=== PATIENT | female | born 1955 | race Caucasian/White ===

== ENCOUNTER → 2018-06-06 | Outpatient (CLI) | payer OTHER ==
[~2018-06-06] MED LIST: ALBU90OI61 INH; AZAT50 PO; BUPR150ER PO; CALCIUM 500 MG1 EACH PO; CIME400; CIME400 PO; CIPR500; CYAN1000I IM; DICL75ER PO; DOXE25; DOXE25 PO; DULO60; Entocort EC 3 mg3 MG PO; FAMO40 PO; FOLI1; FOLI1 PO; GABA300 PO; HYDACE5; INSULANPEN SC; INSULANPEN SL; LEVSOD100; MESA250ER PO; METR500; MOMENI; NAPR500 PO; OMEP40CA12 PO; OXYACE5T PO; PROM25 PO; ROPI1 PO; RXHYDMOR2 PO; Remicade100 MG IV; SERT100; SITA100T2 PO; TAMS.4ER PO; TOCO1000 PO; TRAZ50 PO; TRIHYD253A PO; VENL150ER PO; [UNRECOGNIZED DRUG - OTHER]
== END | disposition home or self-care (01) ==
LOC: LAB SHORT 15:43 → LAB 15:43
DX: B35.1 Tinea unguium (principal)
CPT/HCPCS: 87220

== ENCOUNTER → 2018-07-05 | Outpatient (CLI) | payer OTHER | END | disposition home or self-care (01) | LOC: LAB SHORT 11:57 → PLD 11:57 | DX: D48.5 Neoplasm of uncertain behavior of skin (principal) | CPT/HCPCS: 88305 ==

== ENCOUNTER → 2018-08-28 | Outpatient (CLI) | payer OTHER | END | disposition home or self-care (01) | LOC: LAB SHORT 14:19 → PLD 14:19 | DX: D22.4 Melanocytic nevi of scalp and neck (principal); L82.1 Other seborrheic keratosis | CPT/HCPCS: 88305 ==

== ENCOUNTER → 2019-10-19 | Outpatient (CLI) | payer OTHER | LOC: LAB SHORT 18:33 → LAB EV 18:33 | DX: M54.5 Low back pain (principal); R10.9 Unspecified abdominal pain | CPT/HCPCS: 87086 ==

== ENCOUNTER → 2020-04-09 | Outpatient (CLI) | payer OTHER | END | disposition home or self-care (01) | LOC: PLD 11:45 → LAB SHORT 11:45 | DX: D48.5 Neoplasm of uncertain behavior of skin (principal) | CPT/HCPCS: 88305 ==

== ENCOUNTER → 2020-11-02 | Outpatient (CLI) | payer OTHER, MEDICARE | LOC: LAB SHORT 09:30 → LAB EV 09:30 | DX: E03.9 Hypothyroidism, unspecified (principal) | CPT/HCPCS: 36415; 84443 ==

== ENCOUNTER 2021-06-03 10:55 | Day surgery (SDC) | payer OTHER, MEDICARE ==
[~2021-06-03] VITALS: Ht 167.6 cm; Wt 115.2 kg
[~2021-06-03 10:55] MED LIST changes: +EUTHYROX175 MCG PO; -FOLI1; -LEVSOD100; +LEVSOD100 PO; -MOMENI; +NASONEX17 G1; +OMEP20ER PO; -OMEP40CA12 PO; +Pepcid40 MG PO; +ROPINIROLE HCL4 M1 PO
--- NOTE | 2021-06-03 11:48 | NUR ---
Ambulatory in Day Surgery History, Chart, Medications and Allergies reviewed before start of procedure. Lungs clear T/O to Auscultation. Patient confirms NPO status and agrees with scheduled surgery. Pre-Op teaching done. Pt verbalizes understanding.
--- NOTE | 2021-06-03 12:23 | NUR ---
ASSUMED CARE OF PATIENT. NO CHANGE
--- NOTE | 2021-06-03 14:44 | NUR ---
06/03/21 1444 Caroline Bateman PATIENT PRESENTS WITH SMALL LACERATION TO LEFT LATERAL GREAT TOE--DR. DILLON EXAMINED THE WOUND AND SAID IT WAS OK TO PROCEED WITH SURGERY
--- NOTE | 2021-06-03 19:31 | NUR ---
SHIFT SUMMARY PT A&OX4, VSS, S/P L TKA, DRESSING CDI. PAIN TREATED PER EMAR. WILLARD PO. AMB STAND PIVOT TO BSC, UP TO CHAIR. VOIDING. IVF & ABX PER EMAR. REPORT GIVEN TO АЛЕКСАНДР MURCIA.
[2021-06-04 04:45] LABS: BASOPHILS ABSOLUTE AUTO 0.02 K/mm3 (0.00-0.23); BASOPHILS PERCENT AUTO 0 % (0-2); EOSINOPHILS PERCENT AUTO 0 % (0-6); Hematocrit 35.5 % (33.0-51.0); Hemoglobin 11.4 g/dL (11.5-16.0); IMMATURE GRAN ABSOLUTE AUTO 0.11 K/mm3 (0.00-0.10); IMMATURE GRAN PERCENT AUTO 1 % (0-1); LYMPHOCYTES ABSOLUTE AUTO 1.17 K/mm3 (0.84-5.20); LYMPHOCYTES PERCENT AUTO 9 % (21-46); MONOCYTES ABSOLUTE AUTO 0.54 K/mm3 (0.16-1.47); MONOCYTES PERCENT AUTO 4 % (4-13); Mean Corpuscular HGB Conc 32.1 g/dL (31.5-36.5); Mean Corpuscular Volume 90 fL (80-100); Mean Platelet Volume 11.9 fL (9.1-12.4); NEUTROPHILS ABSOLUTE AUTO 10.83 K/mm3 (1.96-9.15); NEUTROPHILS PERCENT AUTO 85 % (41-73); Platelet Count 146 K/mm3 (150-400); RDW Coefficient Variation 14.4 % (11.7-14.2); RDW Standard Deviation 47.8 fL (35.1-46.3); Red Blood Cell Count 3.93 M/mm3 (3.80-5.20); White Blood Cell Count 12.67 K/mm3 (4.00-11.30)
[2021-06-04 05:01] LABS: Anion Gap 4 mmol/L (6-16); Blood Urea Nitrogen 12 mg/dL (8-24); Bun/Creatinine Ratio 16.2 (12.0-20.0); CO2, Blood 28 mmol/L (21-32); Calcium, Blood 7.6 mg/dL (8.5-10.1); Chloride, Blood 106 mmol/L (98-108); Creatinine, Blood 0.74 mg/dL (0.40-1.00); Glomerular Filtration Rate >60 (60-); Glucose, Blood 148 mg/dL (70-99); Magnesium, Blood 1.9 mg/dL (1.6-2.4); Sodium, Blood 138 mmol/L (136-145)
--- NOTE | 2021-06-04 06:30 | NUR ---
A/OX4. VSS ON RA. PAIN MANAGED WELL W/ CURRENT PAIN MED REGIME. PT AMBULATED IN HALLWAY AND TO TOILET AND TOLERATED WELL. SMALL AMT OF DRAINAGE NOTED, PRESSURE APPLIED AND DRESSING REINFORCED. TOLERATING ORAL FLUIDS/FOOD, IV FLUIDS D/C. SLEEPING B/W CARE. USING CALL LIGHT TO MAKE NEEDS KNOWN.
--- NOTE | 2021-06-04 11:36 | NUR ---
DISCHARGE SUMMARY PT A&OX4, VSS, WILLARD PO, VOIDING WELL, PAIN MANAGED, AMBULATION W/FWW; LEFT FLOOR VIA WC WITH [employer] AFFAIRS DIRECTOR, WITH ALL PERSONAL POSSESSIONS, AQUACEL DRESSINGS X3, POLAR CIERRA, TO GO HOME WITH , PT REP LOVENOX/NARCOTIC/FWW AT HOME. DC INSTRUCTIONS PROVIDED. PT REP UNDERSTANDING THOSE INSTRUCTIONS INCLUDING WHEN/IF TO CALL THE DR/JARON WITH SURGEON, PHYSICAL THERAPY, DRESSING CHANGES. IV DC'D.
== END 2021-06-04 11:38 | disposition home or self-care (01) ==
LOC: ORSCMMR 10:55 → SURS 16:59 → ORSCMMR 06-04 11:38
PROVIDERS: Orthopaedic Surgery
PROC: 0SRD0J9 Replacement of Left Knee Joint with Synthetic Substitute, Cemented, Open Approach (ICD-10-PCS; principal; 2021-06-03 14:30)
PROC: 8E0YXBZ Computer Assisted Procedure of Lower Extremity (ICD-10-PCS; principal; 2021-06-03 14:30)
DX: M17.12 Unilateral primary osteoarthritis, left knee (principal); I10 Essential (primary) hypertension; E11.9 Type 2 diabetes mellitus without complications; E03.9 Hypothyroidism, unspecified; G47.33 Obstructive sleep apnea (adult) (pediatric); E78.5 Hyperlipidemia, unspecified; E66.01 Morbid (severe) obesity due to excess calories; Z68.41 Body mass index [BMI] 40.0-44.9, adult; J45.909 Unspecified asthma, uncomplicated; K21.9 Gastro-esophageal reflux disease without esophagitis; Z79.899 Other long term (current) drug therapy
CPT/HCPCS: 36415; 73560-LT; 80048; 82947; 83735; 85025; 94760; 97110; 97116; 97162; A9270; C1713; C1776; J0171; J0690; J0735; J1100; J1170; J1650; J1885; J2250; J2370; J2405; J2704; J2795; J3010; J7120; J7500

== ENCOUNTER → 2021-09-09 | Outpatient (CLI) | payer OTHER, MEDICARE ==
[2021-09-10 10:16] LABS: T. vaginalis (DNA Probe) Negative (NEGATIVE)
[2021-09-10 10:17] LABS: Candida species (DNA Probe) Negative (NEGATIVE); G. vaginalis (DNA Probe) Negative (NEGATIVE)
== END ==
LOC: LAB SHORT 15:52 → LAB 15:52
PROVIDERS: Advanced Practice Midwife
DX: N76.0 Acute vaginitis (principal)
CPT/HCPCS: 87480; 87510; 87660

== ENCOUNTER → 2021-12-28 | Outpatient (CLI) | payer OTHER, MEDICARE ==
[2021-12-28 09:32] LABS: BASOPHILS ABSOLUTE AUTO 0.03 K/mm3 (0.00-0.23); BASOPHILS PERCENT AUTO 0 % (0-2); EOSINOPHILS ABSOLUTE AUTO 0.02 K/mm3 (0.00-0.68); EOSINOPHILS PERCENT AUTO 0 % (0-6); Hematocrit 43.1 % (33.0-51.0); Hemoglobin 13.6 g/dL (11.5-16.0); IMMATURE GRAN ABSOLUTE AUTO 0.08 K/mm3 (0.00-0.10); IMMATURE GRAN PERCENT AUTO 1 % (0-1); LYMPHOCYTES PERCENT AUTO 27 % (21-46); MONOCYTES ABSOLUTE AUTO 0.47 K/mm3 (0.16-1.47); MONOCYTES PERCENT AUTO 5 % (4-13); Mean Corpuscular HGB Conc 31.6 g/dL (31.5-36.5); Mean Corpuscular Volume 86 fL (80-100); Mean Platelet Volume 11.6 fL (9.1-12.4); NEUTROPHILS ABSOLUTE AUTO 6.04 K/mm3 (1.96-9.15); NEUTROPHILS PERCENT AUTO 66 % (41-73); Platelet Count 202 K/mm3 (150-400); RDW Coefficient Variation 15.7 % (11.7-14.2); RDW Standard Deviation 48.3 fL (35.1-46.3); Red Blood Cell Count 5.03 M/mm3 (3.80-5.20); White Blood Cell Count 9.14 K/mm3 (4.00-11.30)
[2021-12-28 09:55] LABS: Alanine Aminotransfer (ALT/SGP 30 U/L (12-78); Albumin, Blood 3.2 g/dL (3.4-5.0); Albumin/Globulin Ratio 0.7 (0.8-1.8); Alk Phos 99 U/L (40-126); Anion Gap 11 mmol/L (6-16); Aspartate Aminotrans (AST/SGOT 28 U/L (12-37); Bilirubin, Total 0.4 mg/dL (0.1-1.0); Blood Urea Nitrogen 13 mg/dL (8-24); Bun/Creatinine Ratio 15.7 (12.0-20.0); CO2, Blood 30 mmol/L (21-32); Calcium, Blood 8.8 mg/dL (8.5-10.1); Chloride, Blood 103 mmol/L (98-108); Creatinine, Blood 0.83 mg/dL (0.40-1.00); Globulin, Blood 4.5 g/dL (2.2-4.0); Glomerular Filtration Rate >60 (60-); Glucose, Blood 122 mg/dL (70-99); Potassium, Blood 3.9 mmol/L (3.5-5.5); Sodium, Blood 144 mmol/L (136-145); Thyroid Stimulating Hormone 1.701 uIU/mL (0.360-4.800); Total Protein, Blood 7.7 g/dL (6.4-8.2)
== END ==
LOC: LAB SHORT 09:27
PROVIDERS: Physician Assistant
DX: R10.9 Unspecified abdominal pain (principal); R53.83 Other fatigue
CPT/HCPCS: 80053; 83690; 84443; 85025

== ENCOUNTER 2022-01-06 10:19 | Day surgery (SDC) | payer OTHER, MEDICARE ==
[~2022-01-06] VITALS: Ht 198.1 cm; Wt 120.2 kg
[2022-01-06] MEDS ORDERED: TRULICITY4.5 MG/0.5 (11:52)
[2022-01-06] MEDS ORDERED: HUMIRA PEN40 MG/0.2 ×2 (11:53→12:51)
--- NOTE | 2022-01-06 12:47 | NUR ---
Ambulatory in Day Surgery. History, Chart, Medications and Allergies reviewed before start of procedure. Lungs clear T/O to Auscultation. Patient confirms NPO status and agrees with scheduled surgery. Pre-Op teaching done. Pt verbalizes understanding.
[2022-01-06] MEDS ORDERED: TRULICITY1.5 MG/0.1 SQ (12:50)
--- NOTE | 2022-01-06 13:56 | NUR ---
REPORT TO DIVINA CM.
--- NOTE | 2022-01-06 18:27 | NUR ---
PATIENT ARRIVED THE FLOOR FROM PACU AT THIS TIME. ALERT AND AWAKE, ANSWERES QUESTIONS APPROPRIATELY. NO SIGNS OR SYMPTOMS ACUTE DISTRESS NOTED. CALL LIGHT AND WATER IN EASY REACH. DRESSING TO RIGHT KNEE CDI, ISAEL BANDAGE AND POLAR PACK ON. PATIENT UNABLE TO MOVE TOES AND CANNOT FEEL TOUCH TO FEET AT THIS TIME. PATIENT DENIES PAIN. GIVEN WATER AND APPLESAUCE AND CRACKERS. DINNER TRAY HAS BEEN ORDERED. WILL MONITOR.
[2022-01-07 04:51] LABS: BASOPHILS ABSOLUTE AUTO 0.01 K/mm3 (0.00-0.23); BASOPHILS PERCENT AUTO 0 % (0-2); EOSINOPHILS PERCENT AUTO 0 % (0-6); Hematocrit 34.9 % (33.0-51.0); Hemoglobin 10.7 g/dL (11.5-16.0); IMMATURE GRAN PERCENT AUTO 1 % (0-1); LYMPHOCYTES ABSOLUTE AUTO 0.89 K/mm3 (0.84-5.20); LYMPHOCYTES PERCENT AUTO 7 % (21-46); MONOCYTES ABSOLUTE AUTO 0.35 K/mm3 (0.16-1.47); MONOCYTES PERCENT AUTO 3 % (4-13); Mean Corpuscular HGB 26.9 pg (26.0-34.0); Mean Corpuscular HGB Conc 30.7 g/dL (31.5-36.5); Mean Corpuscular Volume 88 fL (80-100); Mean Platelet Volume 12.1 fL (9.1-12.4); NEUTROPHILS ABSOLUTE AUTO 12.32 K/mm3 (1.96-9.15); NEUTROPHILS PERCENT AUTO 90 % (41-73); Platelet Count 180 K/mm3 (150-400); RDW Coefficient Variation 15.3 % (11.7-14.2); RDW Standard Deviation 49.1 fL (35.1-46.3); Red Blood Cell Count 3.98 M/mm3 (3.80-5.20); White Blood Cell Count 13.67 K/mm3 (4.00-11.30)
[2022-01-07 05:26] LABS: Anion Gap 5 mmol/L (6-16); Blood Urea Nitrogen 14 mg/dL (8-24); Bun/Creatinine Ratio 16.4 (12.0-20.0); CO2, Blood 27 mmol/L (21-32); Calcium, Blood 8.3 mg/dL (8.5-10.1); Chloride, Blood 105 mmol/L (98-108); Creatinine, Blood 0.85 mg/dL (0.40-1.00); Glomerular Filtration Rate >60 (60-); Glucose, Blood 175 mg/dL (70-99); Potassium, Blood 4.1 mmol/L (3.5-5.5); Sodium, Blood 137 mmol/L (136-145)
--- NOTE | 2022-01-07 06:06 | NUR ---
SUMMARY PT HAD SPINAL, BUT HAS REGAINED FULL SENSATION TO ALL EXT.PUNCTURE SITE CLEAR. RLE DSNG D/I WITH POLAR PACK.PT OOB FOR BRP WITH 2 ASSIST. AMBULATES LSOWLY, BUT TOLERATED.PT REQUIRES PO AND IV PAIN MEDS FOR ADEQUATE EFFECT.
[2022-01-07] MEDS ORDERED: LINE600 PO (08:10)
[2022-01-07] MEDS ORDERED: ENOX40I SC (08:10)
[2022-01-07] MEDS ORDERED: PROM25 PO (08:11)
[2022-01-07] MEDS ORDERED: ROXICODONE5 MG PO (08:11)
[2022-01-07] MEDS ORDERED: Aspir 8181 MG PO (08:12)
--- NOTE | 2022-01-07 13:17 | NUR ---
PT. UP IN CHAIR, TOLERATE WELL. WAS UP IN GROSSMAN WITH PT EARLIER, FWW AND GAIT BELT. AT THIS TIME REQUESTING PAIN MEDICATION, ROXICODONE GIVEN, FOR PAIN 7/10 R LEG. VOICES NO OTHER COMPLAINTS, APPETITE GOOD. WATCHING TV. CALL LIGHT IN REACH. DRSG. CLEAN DRY AND INTACT WITH ISAEL WRAP, R KNEE. POLAR PACK ON R KNEE. CMS INTACT RLE
--- NOTE | 2022-01-07 16:35 | NUR ---
PT. DISCHARGED AT 1625, TO HOME. HERE TO TAKE PT. HOME. DISCHARGE INSTRUCTIONS GIVEN, EXPLAINED AND PT. VERBALIZE UNDERSTANDING. PATIENT REPORTS PRESCRIPTIONS GIVEN PRIOR TO SURGERY. POLAR PACK AND PT. BELONGINGS SENT WITH PATIENT. IV LEFT FOREARM REMOVED. DRSG. ON R KNEE CLEAN DRY AND INTACT WITH ISAEL WRAP. W/C TO EXIT. PATIENT DECLINED BLOOD SUGAR CHECK PRIOR TO DISCHARGE, "ILL DO IT MYSELF WHEN I GET HOME" . STATES PAIN IS A 3/10 AND TOLERATE CLOTHES CHANGE AND AMBULATE TO BATHROOM.
--- NOTE | 2022-01-08 12:40 | NUR ---
01/08/22 1240 Katiana Swartz VERIFICATIONS: EDIT CHART.
== END 2022-01-07 16:32 | disposition home or self-care (01) ==
LOC: ORSCMMR 10:19 → ORD 10:45 → ORSCMMR 14:00 → SURS 18:20 → ORSCMMR 01-07 16:32
PROVIDERS: Orthopaedic Surgery
PROC: 8E0YXBZ Computer Assisted Procedure of Lower Extremity (ICD-10-PCS; principal; 2022-01-06 14:00)
PROC: 0SRC0J9 Replacement of Right Knee Joint with Synthetic Substitute, Cemented, Open Approach (ICD-10-PCS; principal; 2022-01-06 14:00)
DX: M17.11 Unilateral primary osteoarthritis, right knee (principal); M25.761 Osteophyte, right knee; E66.01 Morbid (severe) obesity due to excess calories; Z68.41 Body mass index [BMI] 40.0-44.9, adult; I10 Essential (primary) hypertension; J44.9 Chronic obstructive pulmonary disease, unspecified; G47.33 Obstructive sleep apnea (adult) (pediatric); E11.9 Type 2 diabetes mellitus without complications; E03.9 Hypothyroidism, unspecified; Z79.899 Other long term (current) drug therapy
CPT/HCPCS: 36415; 73560-RT; 80048; 82947; 83735; 85025; 97110; 97161; A9270; C1713; C1776; J0171; J0690; J0735; J1100; J1170; J1650; J1815; J1885; J2250; J2704; J2795; J3010; J3370; J7050; J7120; J7500

== ENCOUNTER → 2022-05-02 | Outpatient (CLI) | payer OTHER, MEDICARE ==
[~2022-05-02] MED LIST changes: +Aspir 8181 MG PO; +ENOX40I SC; +HUMIRA PEN40 MG/0.2; +LINE600 PO; +ROXICODONE5 MG PO; +TRULICITY1.5 MG/0.1 SQ; +TRULICITY4.5 MG/0.5
[2022-05-02 11:20] LABS: BASOPHILS ABSOLUTE AUTO 0.02 K/mm3 (0.00-0.23); BASOPHILS PERCENT AUTO 0 % (0-2); EOSINOPHILS ABSOLUTE AUTO 0.01 K/mm3 (0.00-0.68); EOSINOPHILS PERCENT AUTO 0 % (0-6); Hematocrit 36.8 % (33.0-51.0); Hemoglobin 11.1 g/dL (11.5-16.0); IMMATURE GRAN ABSOLUTE AUTO 0.11 K/mm3 (0.00-0.10); IMMATURE GRAN PERCENT AUTO 1 % (0-1); LYMPHOCYTES ABSOLUTE AUTO 1.85 K/mm3 (0.84-5.20); LYMPHOCYTES PERCENT AUTO 17 % (21-46); MONOCYTES ABSOLUTE AUTO 0.59 K/mm3 (0.16-1.47); MONOCYTES PERCENT AUTO 5 % (4-13); Mean Corpuscular HGB 24.4 pg (26.0-34.0); Mean Corpuscular HGB Conc 30.2 g/dL (31.5-36.5); Mean Corpuscular Volume 81 fL (80-100); Mean Platelet Volume 11.9 fL (9.1-12.4); NEUTROPHILS ABSOLUTE AUTO 8.45 K/mm3 (1.96-9.15); NEUTROPHILS PERCENT AUTO 77 % (41-73); Platelet Count 234 K/mm3 (150-400); RDW Coefficient Variation 18.7 % (11.7-14.2); RDW Standard Deviation 53.3 fL (35.1-46.3); Red Blood Cell Count 4.54 M/mm3 (3.80-5.20); White Blood Cell Count 11.03 K/mm3 (4.00-11.30)
== END | disposition home or self-care (01) ==
LOC: LAB 10:43 → LAB SHORT 10:43
PROVIDERS: Physician Assistant
DX: R19.5 Other fecal abnormalities (principal)
CPT/HCPCS: 85025

== ENCOUNTER → 2022-05-17 | Outpatient (CLI) | payer OTHER, MEDICARE ==
[2022-05-20 14:31] LABS: Adenovirus F 40/41 Not Detected (NOT DETECT); Astrovirus Not Detected (NOT DETECT); Campylobacter Sp Not Detected (NOT DETECT); Cryptosporidium Not Detected (NOT DETECT); Cyclospora Cayetanensis Not Detected (NOT DETECT); E. Coli O157 Not Detected (NOT DETECT); Entamoeba Histolytica Not Detected (NOT DETECT); Enteroaggregative E. coli-EAEC Not Detected (NOT DETECT); Enteropathogenic E. coli-EPEC Not Detected (NOT DETECT); Enterotoxigenic E. coli-ETEC Not Detected (NOT DETECT); Giardia Lamblia Not Detected (NOT DETECT); Norovirus GI/GII Not Detected (NOT DETECT); Plesiomonas Shigelloides Not Detected (NOT DETECT); Rotavirus A Not Detected (NOT DETECT); Salmonella Sp Not Detected (NOT DETECT); Sapovirus Not Detected (NOT DETECT); Shiga Toxin-prod E. coli-STEC Not Detected (NOT DETECT); Shigella/Enteroin E. coli-EIEC Not Detected (NOT DETECT); Vibrio Cholerae Not Detected (NOT DETECT); Vibrio Sp Not Detected (NOT DETECT); Yersinia Enterocolitica Not Detected (NOT DETECT)
== END | disposition home or self-care (01) ==
LOC: LAB 15:30 → LAB SHORT 15:30
PROVIDERS: Physician Assistant
DX: R10.30 Lower abdominal pain, unspecified (principal); R19.7 Diarrhea, unspecified; R19.5 Other fecal abnormalities
CPT/HCPCS: 87507

== ENCOUNTER → 2022-06-04 | Outpatient (CLI) | payer OTHER, MEDICARE | END | disposition home or self-care (01) | LOC: LAB 09:00 → LAB SHORT 09:00 | DX: K62.5 Hemorrhage of anus and rectum (principal); K50.00 Crohn's disease of small intestine without complications; Z79.899 Other long term (current) drug therapy | CPT/HCPCS: 83993 ==

== ENCOUNTER 2024-07-21 14:50 | Emergency (ER) | payer MEDICARE, OTHER ==
[~2024-07-21] VITALS: Ht 167.6 cm; Wt 103.4 kg
[2024-07-21 15:04] VITALS: BP 143/74
== END 2024-07-21 16:38 | disposition home or self-care (01) ==
LOC: ER 14:50
DX: S01.01XA Laceration without foreign body of scalp, initial encounter (principal); W22.8XXA Striking against or struck by other objects, initial encounter; Z88.2 Allergy status to sulfonamides; Z91.048 Other nonmedicinal substance allergy status; Z88.1 Allergy status to other antibiotic agents; Z79.899 Other long term (current) drug therapy; Z79.82 Long term (current) use of aspirin
CPT/HCPCS: 12002; 70450; 99283-25

== ENCOUNTER → 2024-09-07 | Outpatient (CLI) | payer MEDICARE, OTHER ==
[2024-09-08 10:20] LABS: C DIFFICILE DNA NEGATIVE (Negative)
[2024-09-11 07:23] LABS: CALPROTECTIN,FECAL 165 ug/g (<=49)
== END ==
LOC: LAB SHORT 17:30 → LAB 17:30
PROVIDERS: Internal Medicine Gastroenterology
DX: Z79.899 Other long term (current) drug therapy (principal); K50.90 Crohn's disease, unspecified, without complications; Z88.5 Allergy status to narcotic agent
CPT/HCPCS: 83993; 87493